=== PATIENT | male | born 1955 ===

== ENCOUNTER 2024-02-19 13:42 | Emergency (ER) | payer MEDICARE, BC, SELFPAY ==
[2024-02-19 13:49] VITALS: BP 177/98
--- NOTE | 2024-02-19 13:49 | ED.GENMED ---
ED Provider Triage
<Nell Keen FLOORING MACHINE FEEDER - Last Filed: 02/19/24 13:57>
-
Patient seen by provider in Triage?: Seen in Triage
Attestation: A medical screening examination has been initiated by a qualified medical provider. Based on the assessment performed at this time, it has been determined that an emergent medical condition may exist and the patient has been informed
that further medical evaluation and possible additional diagnostic testing may be needed.
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
Appt tomorrow at [facility] for lung CA.
Pt states 'the nurse at [facility] after reading my text over the weekend told me to come to ER immediately.' Increase in amount of swelling in my feet and ankles and new swelling in calfs and abdomen.
Pulse ox normally 94% sitting at rest typically drops with activity
GENERAL: Alert , in no apparent distress
EYE: No visual abnormalities.
NECK: Trachea midline
ENT: No visible abnormalities.
LUNGS: No acute respiratory distress
NEUROLOGICAL: Alert and oriented
SKIN: Skin intact. No visible changes.
MUSCULOSKELETAL: Moving extremities normally
PSYCH: Normal and appropriate interaction.
This is a medical evaluation conducted in person to initiate diagnostic evaluation and provide initial therapeutics. Please see further documentation by the treating clinician.
History of Present Illness
<Nell Keen FLOORING MACHINE FEEDER - Last Filed: 02/19/24 13:57>
General
Chief Complaint: Swelling
Time Seen by Provider: 02/19/24 16:25
<Guadalupe Wilkins PA-C - Last Filed: 02/19/24 23:40>
General
Source: patient
Exam Limitations: none
Nursing documentation reviewed up to this point in time: agreed with
History of Present Illness
History of Present Illness:
Patient is a 68-year-old male with history of metastatic lung cancer with mets to the brain presenting to the emergency for evaluation of bilateral lower extremity swelling and worsening shortness of breath over the past 2 weeks. Patient reports
gradual increase in swelling with bilateral lower extremities from feet to mid calf. He did have a cramping sensation as her legs on Monday. He denies any redness. Patient does report a mild increase in shortness of breath, as well. He denies
any cough or fever. No chest pain. Patient does use 4 L of supplemental oxygen at night. In addition�she has gained 10 pounds since his most recent appointment at [facility] approximately 6 weeks ago.
Of note�patient did recently start a new medication, Lorbrena approximate 2 weeks ago prior to onset of symptoms. He feels this probably side effect of this medication. However�he did contact his oncology nurse at [facility] who states that given his
symptoms emergency department to rule out a blood clot.
He does have a follow-up appointment at [facility] tomorrow.
Past History
<Nell Keen FLOORING MACHINE FEEDER - Last Filed: 02/19/24 13:57>
Past History
ED Past Medical History: Cancer and HTN
ED Past Surgical History: Other
Social History
Tobacco: Former smoker
Alcohol: Other
Drug: None
Personal:
Living: with family
Employment: Other
Family History
Family History: Other
Review of Systems
<Guadalupe Wilkins PA-C - Last Filed: 02/19/24 23:40>
Review of Systems
Allergies reviewed?: Yes
All Other Systems: ROS reviewed and negative except as documented in HPI and ROS
Phy Exam
<Guadalupe Wilkins PA-C - Last Filed: 02/19/24 23:40>
Physical Exam
Physical Exam:
Vitals: Patient's vital signs are stable. Afebrile
General: Patient is in no apparent dress.
Skin: Warm and dry, no rashes or lesions
Head: Normocephalic, atraumatic
Eyes: Sclera nonicteric. EOMs intact. No nystagmus.
Throat: Protecting airway
Neck: Normal ROM, no cervical spine tenderness, no meningismus
Cardiac: Regular rate and rhythm, no murmurs.
Pulm: Normal respiratory effort. Oxygen saturation 94 on room air. Decreased breath sounds at left base. No wheezing, rales, or rhonchi.
Abdomen: No abdominal tenderness.
Extremities: 2+ pitting edema bilateral lower extremities from feet through calves. No erythema or warmth. Negative Homans' sign bilaterally. Palpable DP pulses bilateral
Neuro: AAOx3.
Psychiatric: Normal affect.
Scores
<Guadalupe Wilkins PA-C - Last Filed: 02/19/24 23:40>
Heart Failure Risk
Heart Failure Risk Score: Yes
History of Stroke or TIA: No
History of intubation for respiratory distress: No
Heart rate on ED arrival >/= 110: No
SaO2 <90% on arrival on room air: No
HR >/=110 during 3min walk test (or too ill to perform test): No
ECG has acute ischemic changes: No
Urea >/=12mmol/L (BUN 33.6mg/dL): No
Serum CO2>/=35mmol/L: Yes
Troponin I or T elevated to ND Level (0.4mg/dL): No
NT-proBNP >/=5,000ng/L (5,000pg/ml): No
HF Risk Score: 2
Admission Status: MEDIUM RISK 9.2% Consider observation or discharge to home with homecare & f/u visit to PCP/Counseling Center Director, or SNF for treatment
Course
<Nell Keen FLOORING MACHINE FEEDER - Last Filed: 02/19/24 13:57>
Orders/Labs/Results
Orders:
Orders
02/19/24 14:01
Complete Blood Count/With Diff Urgent
NT-proBNP Urgent
02/19/24 14:02
Comprehensive Metabolic Panel Urgent
02/19/24 17:03
US Periph Venous LOWER Ext Clem Urgent
Reason For Exam: LE swelling, lung CA
02/19/24 17:04
Electrocardiogram (*1) Urgent
Reason for Study: Shortness of Breath
EKG- Treatment ONCE
02/19/24 17:08
D-Dimer Urgent
Troponin I Urgent
Abnormal Lab Results
02/19/24 02/19/24 02/19/24
14:01 14:02 17:08
MCHC 31.5 L g/dL
(33.0-37.0)
Abs Immat Gran (auto) 0.1 H 10^3/uL
(0-0.05)
Absolute Monos (auto) 1.1 H 10^3/uL
(0.1-0.6)
Immature Gran % 0.6 H %
(0-0.5)
Lymphocytes % 19.4 L %
(20.5-51.1)
Monocytes % 11.7 H %
(1.7-9.3)
D-Dimer 1.50 H ug/mlFEU
(0.00-0.50)
Chloride 91 L mmol/L
(98-107)
Carbon Dioxide 39 H mmol/L
(22-30)
Glucose 105 H mg/dl
(70-99)
02/19/24 14:01
02/19/24 14:02
Vital Signs
Initial and Last Documented VS:
Initial Vital Signs
Temp Pulse Resp BP Pulse Ox
98.4 F 72 18 177/98 93
02/19/24 13:49 02/19/24 13:49 02/19/24 13:49 02/19/24 13:49 02/19/24 13:49
Last Documented Vital Signs
Temp Pulse Resp BP Pulse Ox
98.4 F 71 24 162/99 97
02/19/24 13:49 02/19/24 17:38 02/19/24 17:38 02/19/24 20:36 02/19/24 17:15
<Guadalupe Wilkins PA-C - Last Filed: 02/19/24 23:40>
Orders/Labs/Results
Orders:
Orders
02/19/24 14:01
Complete Blood Count/With Diff Urgent
NT-proBNP Urgent
02/19/24 14:02
Comprehensive Metabolic Panel Urgent
02/19/24 17:03
US Periph Venous LOWER Ext Clem Urgent
Reason For Exam: LE swelling, lung CA
02/19/24 17:04
Electrocardiogram (*1) Urgent
Reason for Study: Shortness of Breath
EKG- Treatment ONCE
02/19/24 17:08
D-Dimer Urgent
Troponin I Urgent
Abnormal Lab Results
02/19/24 02/19/24 02/19/24
14:01 14:02 17:08
MCHC 31.5 L g/dL
(33.0-37.0)
Abs Immat Gran (auto) 0.1 H 10^3/uL
(0-0.05)
Absolute Monos (auto) 1.1 H 10^3/uL
(0.1-0.6)
Immature Gran % 0.6 H %
(0-0.5)
Lymphocytes % 19.4 L %
(20.5-51.1)
Monocytes % 11.7 H %
(1.7-9.3)
D-Dimer 1.50 H ug/mlFEU
(0.00-0.50)
Chloride 91 L mmol/L
(98-107)
Carbon Dioxide 39 H mmol/L
(22-30)
Glucose 105 H mg/dl
(70-99)
02/19/24 14:01
02/19/24 14:02
Vital Signs
Initial and Last Documented VS:
Initial Vital Signs
Temp Pulse Resp BP Pulse Ox
98.4 F 72 18 177/98 93
02/19/24 13:49 02/19/24 13:49 02/19/24 13:49 02/19/24 13:49 02/19/24 13:49
Last Documented Vital Signs
Temp Pulse Resp BP Pulse Ox
98.4 F 71 24 162/99 97
02/19/24 13:49 02/19/24 17:38 02/19/24 17:38 02/19/24 20:36 02/19/24 17:15
<Mathew Tenorio, DO - Last Filed: 02/19/24 20:30>
Orders/Labs/Results
Orders:
Orders
02/19/24 14:01
Complete Blood Count/With Diff Urgent
NT-proBNP Urgent
02/19/24 14:02
Comprehensive Metabolic Panel Urgent
02/19/24 17:03
US Periph Venous LOWER Ext Clem Urgent
Reason For Exam: LE swelling, lung CA
02/19/24 17:04
Electrocardiogram (*1) Urgent
Reason for Study: Shortness of Breath
EKG- Treatment ONCE
02/19/24 17:08
D-Dimer Urgent
Troponin I Urgent
Abnormal Lab Results
02/19/24 02/19/24 02/19/24
14:01 14:02 17:08
MCHC 31.5 L g/dL
(33.0-37.0)
Abs Immat Gran (auto) 0.1 H 10^3/uL
(0-0.05)
Absolute Monos (auto) 1.1 H 10^3/uL
(0.1-0.6)
Immature Gran % 0.6 H %
(0-0.5)
Lymphocytes % 19.4 L %
(20.5-51.1)
Monocytes % 11.7 H %
(1.7-9.3)
D-Dimer 1.50 H ug/mlFEU
(0.00-0.50)
Chloride 91 L mmol/L
(98-107)
Carbon Dioxide 39 H mmol/L
(22-30)
Glucose 105 H mg/dl
(70-99)
02/19/24 14:01
02/19/24 14:02
Vital Signs
Initial and Last Documented VS:
Initial Vital Signs
Temp Pulse Resp BP Pulse Ox
98.4 F 72 18 177/98 93
02/19/24 13:49 02/19/24 13:49 02/19/24 13:49 02/19/24 13:49 02/19/24 13:49
Last Documented Vital Signs
Temp Pulse Resp BP Pulse Ox
98.4 F 71 24 162/99 97
02/19/24 13:49 02/19/24 17:38 02/19/24 17:38 02/19/24 20:36 02/19/24 17:15
<Guadalupe Wilkins PA-C - Last Filed: 02/19/24 23:40>
MDM/Problems Addressed
Differential Diagnosis Includes:
Not limited to: Medication side effect, CHF, DVT, PE, ACS, lymphedema, progression of disease, etc
MDM/Problems Addressed:
68-year-old male with history as documented presenting with progressively worsening lower extremity edema and shortness of breath. No fevers or chest pain. Did recently start new medication for lung cancer around onset of symptoms. Scheduled to
follow-up with [facility] tomorrow. Mildly hypertensive, otherwise stable on arrival. On exam�patient does have significant bilateral lower extremity pitting edema with palpable pulses. No erythema or warmth to suggest infectious process.
Patient has stable pulse ox around 94 on room air. Mildly decreased breath sounds of left base otherwise lungs clear without wheezing. Labs were initiated in triage without clinically significant abnormalities. proBNP of 572. Will add on
troponin. Check EKG. Given known malignancy�patient is in a hypercoagulable state will check ultrasound of bilateral lower extremities. In addition�given worsening shortness of breath�will obtain D-dimer. Plan for chest x-ray versus CTA chest
following results of D-dimer. Will continue to monitor.
Update: Troponin of 0.027 which appears stable for patient. EKG without acute ischemic changes�very low suspicion for ACS. D-dimer was elevated while 5. Will obtain CTA chest.
Update 8 PM: Patient was transported to CT machine where he done refused imaging due to difficulties lying flat. Patient was given appropriate level of oxygen and room positional scanner although patient continued to refuse scan. He refuses any
further imaging including CAT scan and chest x-ray. He states that he will have this imaging obtained at [facility] tomorrow with his appointment. Patient aware of risks associated with not pursuing imaging today. Overall low suspicion for PE
although did have a patient regarding risks associated with not pursuing imaging today. Patient understands.
Ultimately�feel symptoms are probably related to patient's medication. Although stricter prior precautions were discussed with patient. He will follow-up with oncology team tomorrow at [facility]. Patient seen with attending physician.
Chronic conditions affecting care:
Metastatic lung cancer
Acute Exacerbation and/or Progression of Chronic Illness:
N/A
<Guadalupe Wilkins PA-C - Last Filed: 02/19/24 23:40>
*Pulse Oximetry
Patient hypoxic: no
*EKG
Interpreted by ED Provider?: Yes
EKG Intrepretation Date: 02/19/24
Interpretation: normal
Comparison EKG: no changes
Heart Rate: 71
Rate: normal
Rhythm: sinus
[place]: normal axis
QRS Pattern: right bundle branch block
Ischemia: no ischemia
*Aerotriangulation Specialist Interpretation
Rate: Aerotriangulation Specialist- N/A
*Critical Care Note
Total Time (30-74mins, 75-104mins- exclusive of procedures): Not Applicable
ED Attending Note
<Nell Keen FLOORING MACHINE FEEDER - Last Filed: 02/19/24 13:57>
-
Portions of this chart may have been created with voice recognition software.� Occasional wrong word or��sound alike� substitutions may have occurred due to the inherent limitations of voice recognition software.
<Mathew Tenorio DO - Last Filed: 02/19/24 20:30>
ED Attending Note
Patient seen and examined by attending physician: Yes
I performed a history and physical exam of patient and discussed management with resident, I reviewed resident's note and agree with documented findings and plan of care.: Yes
ED Attending Note:
I have reviewed and agree with history and treatment plan by Guadalupe Pearce. My exam revealed
Physical Exam
General: no apparent distress, not acutely ill
Neck: supple. no meningeal signs. normal posterior pharynx
Heart: s1/s2 regular rate and rhythm, no murmur. equal radial
pulses.
HEENT: Pupils equal round reactive to light, EOMI
Lungs: no acute respiratory distress. clear bilaterally
Abdomen: normal bowel sounds. not tender. no CVAT
Neuro: alert and oriented. no focal neurological deficits cranial nerves II through XII intact
Skin: no rash
Psychiatric: well kept. interactive and cooperative
Extremities: Bilateral tibial and pedal edema. no calf tenderness. negative homans. good distal pulses
68-year-old male with bilateral edema, reported shortness of breath as well. Will check D-dimer, chest x-ray and ultrasounds. Suspect this is medication related. Mild D-dimer elevation, however patient declines CAT scan, understands risks. Will
discharge to follow-up with oncology at [facility].
Discharge Plan
Departure
Patient Disposition: Home (Routine Discharge)
Date of Disposition: 02/19/24
Time of Disposition: 20:29
Patient with high blood pressure during this ER visit?: Yes
Discharge Problem:
Swelling of both lower extremities, Chronic shortness of breath
Instructions: Swelling, Shortness of breath in adults - ED discharge instructions, BLOOD PRESSURE
Prescriptions:
No Action
polyethylene glycol 3350 [Miralax] 17 gram Powder In Packet
17 g PO DAILYPRN PRN (Reason: constipation)
fluticasone propionate 50 mcg/actuation [place],Suspension
1 spray INTRANASAL BIDPRN PRN (Reason: allergies)
calcium carbonate-vitamin D3 [Calcium 500 + D] 500 mg-10 mcg (400 unit) Tablet
3 tab PO BID
Refresh Optive 0.5-0.9 % Drops
1 drp BOTH EYES QID
Alecensa 150 mg Capsule
600 mg PO BIDWMEAL
Referrals:
Aram Guerrier MD [Family Provider] -
Activity Restrictions/Additional Instructions:
Return to the emergency department with any chest pain, shortness of breath/difficulty breathing, worsening swelling in lower legs, fevers, or any other concerns
-As discussed�your D-dimer blood level was elevated while in the emergency department. It was recommended that you have a CAT scan of your chest which you did decline. Please return with any worsening shortness breath or chest pain.
-Your ultrasound showed no evidence of DVTs in the emergency department.
-Continue to take medications as prescribed.
-Follow-up with your oncology team at [facility] tomorrow as scheduled
Monitor your symptoms closely and return to the emergency department with any acute worsening/new symptoms or any other concerns
Interventions
Interventions:
*Risk Screen - Suicide Last Done: 02/19/24 13:49
*General Assessment Last Done: 02/19/24 13:49
*Neglect/Abuse Screening Last Done: 02/19/24 13:49
ED- Fall Risk Assessment Last Done: 02/19/24 16:26
*ED COVID-19 Vaccine History Last Done: 02/19/24 16:26
*Nursing Disposition Last Done: 02/19/24 20:47
ED- Cardiac Assessment Last Done: 02/19/24 16:53
ED- Pulmonary Assessment Last Done: 02/19/24 16:53
ED-Skin Assessment Last Done: 02/19/24 16:53
Discharge Date and Time
Discharge Date/Time: 02/19/24 20:57
Print Language: UPPER SORBIAN
[2024-02-19 14:14] LABS: % Basophils 0.5 % (0-2); % Eosinophils 1.1 % (0-6); % Immature Granulocytes 0.6 % (0-0.5); % Lymphocytes 19.4 % (20.5-51.1); % Monocytes 11.7 % (1.7-9.3); % Neutrophils 66.7 % (42.2-75.2); Absolute Basophils 0.1 10^3/uL (0-0.2); Absolute Eosinophils 0.1 10^3/uL (0-0.7); Absolute Immature Granulocytes 0.1 10^3/uL (0-0.05); Absolute Lymphocytes 1.9 10^3/uL (1.2-3.4); Absolute Monocytes 1.1 10^3/uL (0.1-0.6); Absolute Neutrophils 6.4 10^3/uL (1.4-6.5); Hematocrit 42.5 % (39.0-52.0); Hemoglobin 13.4 g/dL (13.0-18.0); Mean Corp Hgb Conc. 31.5 g/dL (33.0-37.0); Mean Corpuscular Hgb 28.1 pg (27.0-31.0); Mean Corpuscular Volume 89.1 fL (80.0-94.0); Mean Platelet Volume 9.1 fL (7.4-10.4); Nucleated Red Blood Cells % 0 % (-); Platelet Count 241 10^3/uL (130-400); Red Blood Cell Count 4.77 10^6/uL (4.70-6.10); Red Cell Dist. Width 14.2 % (11.5-14.5); White Blood Cell Count 9.6 10^3/uL (4.8-10.8)
[2024-02-19 14:33] LABS: ALT (SGPT) 18 U/L (0-50); AST (SGOT) 28 U/L (17-59); Albumin 3.8 g/dl (3.5-5.0); Alkaline Phosphatase 61 U/L (38-126); Blood Urea Nitrogen 16 mg/dl (9-20); Calcium 9.1 mg/dl (8.4-10.2); Chloride 91 mmol/L (98-107); Glucose 105 mg/dl (70-99); Potassium 4.5 mmol/L (3.5-5.1); Sodium 139 mmol/L (135-145); Total Bilirubin 0.3 mg/dl (0.2-1.3); Total Protein 6.7 g/dl (6.3-8.2); eGFR > 60.00
[2024-02-19 14:42] LABS: NT-proBNP 572 pg/ml
[2024-02-19 14:53] LABS: Carbon Dioxide 39 mmol/L (22-30)
[2024-02-19 16:30] VITALS: BP 135/61
[2024-02-19 17:08] VITALS: BP 98/84
[2024-02-19 17:13] VITALS: BMI 48.8
[2024-02-19 17:46] LABS: Troponin I 0.027 ng/ml
[2024-02-19 20:36] VITALS: BP 162/99
== END 2024-02-19 20:57 | disposition home or self-care (01) ==
LOC: EMR 13:42
PROVIDERS: Physician Assistant; Registered Nurse; EMERGENCY PHYSICIAN Emergency Medicine; FAMILY PHYSICIAN Internal Medicine
DX: R22.43 Localized swelling, mass and lump, lower limb, bilateral (principal); R06.02 Shortness of breath; I10 Essential (primary) hypertension; Z87.891 Personal history of nicotine dependence
CPT/HCPCS: 99285; 80053; 83880; 84484; 85025; 85379; 93005; 93970

== ENCOUNTER 2024-08-23 15:03 | Emergency (ER) | payer MEDICARE, BC, SELFPAY ==
[2024-08-23 15:15] VITALS: BP 135/97
--- NOTE | 2024-08-23 18:05 | ED.GENMED ---
History of Present Illness
General
Chief Complaint: Skin Surface Trauma
Time Seen by Provider: 08/23/24 17:07
History of Present Illness
History of Present Illness:
68-year-old male with history of chronic lymphedema, PE on Eliquis, and history of stage IV lung cancer presenting to the emergency department for lower extremity swelling and blistering. Patient reports that he just darted following with a limb
specialist on Monday. Few days after his appointment, had some blistering to bilateral lower extremities. He has been dressing them and unroofed of the blisters himself. Denies any redness or significant pain. Denies fever, increased
shortness of breath, chest pain. Denies any increased swelling to lower extremities. He presents for evaluation of his wounds to ensure that he is dressing them appropriately. Denies additional acute medical complaints
Past History
Past History
ED Past Medical History: Cancer and HTN
ED Past Surgical History: Other
Social History
Tobacco: Former smoker
Alcohol: Other
Drug: None
Personal:
Living: with family
Employment: Other
Family History
Family History: Other
Phy Exam
Physical Exam
Physical Exam:
General: Well-appearing, no clinical signs of dehydration, nontoxic and in no acute distress
HEENT: protecting airway
Neck: appears supple
CV: Normal heart rate
Resp: No accessory muscle use, no increased work of breathing
Abd: No distention, protuberant abdomen
Extremities: Symmetrical swelling to bilateral lower extremities with known chronic lymphedema. Large unroofed blister at the right jones without any erythema or drainage. Smaller blister to the anterior aspect of the left foot. Again no active
bleeding or drainage. No erythema or warmth
Neuro: alert, no focal neurologic deficit
: deferred
Rectal: deferred
Psych: Normal affect
Skin: Intact
Course
Vital Signs
Initial and Last Documented VS:
Initial Vital Signs
Temp Pulse Resp BP Pulse Ox
98.3 F 76 18 135/97 92
08/23/24 15:15 08/23/24 15:15 08/23/24 15:15 08/23/24 15:15 08/23/24 15:15
Last Documented Vital Signs
Temp Pulse Resp BP Pulse Ox
98.3 F 76 18 135/97 91
08/23/24 15:15 08/23/24 15:15 08/23/24 15:15 08/23/24 15:15 08/23/24 15:15
MDM/Problems Addressed
MDM/Problems Addressed:
68-year-old male with history of chronic lymphedema presenting for blistering of the lower extremities. Vitals are normal.
On exam patient is resting comfortably, no acute distress. Patient has significant lower extremity edema, however denies any increased swelling. Patient on review some blisters, however notes that he did so sterilely. No current signs of
infection and no active bleeding. Wounds were appropriately dressed. Patient and instructed on how to dress the wounds, encouraged importance of keeping them clean. Otherwise feel stable for discharge. Return precautions discussed and
patient verbalized understanding
*Pulse Oximetry
SaO2: 91
Oxygen Mode of Delivery: Room air
*Critical Care Note
Total Time (30-74mins, 75-104mins- exclusive of procedures): Not Applicable
ED Attending Note
-
Portions of this chart may have been created with voice recognition software.� Occasional wrong word or��sound alike� substitutions may have occurred due to the inherent limitations of voice recognition software.
Discharge Plan
Departure
Patient Disposition: Home (Routine Discharge)
Date of Disposition: 08/23/24
Time of Disposition: 18:11
Patient with high blood pressure during this ER visit?: No
Condition: Good
Discharge Problem:
Chronic acquired lymphedema, Blistering of skin
Prescriptions:
No Action
polyethylene glycol 3350 [Miralax] 17 gram Powder In Packet
17 g PO DAILYPRN PRN (Reason: constipation)
fluticasone propionate 50 mcg/actuation [place],Suspension
1 spray INTRANASAL BIDPRN PRN (Reason: allergies)
calcium carbonate-vitamin D3 [Calcium 500 + D] 500 mg-10 mcg (400 unit) Tablet
3 tab PO BID
Refresh Optive 0.5-0.9 % Drops
1 drp BOTH EYES QID
Alecensa 150 mg Capsule
600 mg PO BIDWMEAL
Referrals:
UNKNOWN - PT DOES,NOT KNOW [Family Provider]
Activity Restrictions/Additional Instructions:
You were seen in the emergency department for lower extremity swelling and skin blistering
Your blisters were appropriately dressed. Please follow-up with your limb specialist and continue to change her dressings daily.
Please follow-up closely with your primary care physician.
Return to the emergency department for any worsening of your symptoms, or any development of chest pain, difficulty breathing, abdominal pain with persistent vomiting and inability to tolerate food or liquid by mouth (concern for dehydration),
weakness, headache or confusion, fever greater than 100.4, or any additional symptoms that are concerning to you.
Thank you for choosing [facility].
Interventions
Interventions:
*General Assessment Last Done: 08/23/24 16:12
Discharge Date and Time
Print Language: IRISH
[2024-08-23 18:23] VITALS: BP 130/88
== END 2024-08-23 18:25 | disposition home or self-care (01) ==
LOC: EMR 15:03
PROVIDERS: EMERGENCY PHYSICIAN Student in an Organized Health Care Education/Training Program
DX: I89.0 Lymphedema, not elsewhere classified (principal); S80.822A Blister (nonthermal), left lower leg, initial encounter; X58.XXXA Exposure to other specified factors, initial encounter; I10 Essential (primary) hypertension; Z79.01 Long term (current) use of anticoagulants; Z87.891 Personal history of nicotine dependence
CPT/HCPCS: 99282